=== PATIENT | female | born 1985 | race Caucasian/White ===

== ENCOUNTER 2021-12-24 05:06 | Inpatient (IN) ==
[2021-12-24] MEDS ORDERED: SODIUM CHLORIDE 0.9% 1000ML 1,000 ML IV ONE (05:22)
[2021-12-24] MEDS ORDERED: ALBUT/IPRATROP 3MG/0.5MG NEB 3 ML VIAL NEB STA (05:22)
[2021-12-24] MEDS ORDERED: LORazepam 2 MG/1 ML VIAL IV STA (05:22)
--- NOTE | 2021-12-24 05:30 | Emergency Department Note ---
History of Present Illness General Chief complaint: Shortness of Breath/Dyspnea Stated complaint: HEART IS RACING, SHORTNESS OF BREATH Time Seen by Provider: 12/24/21 05:15 History of Present Illness Maximum Pain Intensity: 7 This 36-year-old presents to the ER complaining of chest pain, tachycardia, dyspnea, fever, body aches, fatigue and rash for the past several days has been to 2 other providers already Location: Generalized Quality: Fatigue Severity: Moderate Duration: Past week Timing: Started a week ago Context: Patient was concerned and came in Modifying factors: better with rest; worse with activity Patient has had a monotest and viral panel which were negative. She is a pending Lyme's test. Patient denies chest pain, dyspnea, abdominal pain, vomiting, diarrhea. No recent tick bite. Home Medications Medication Instructions Recorded Confirmed Type doxycycline monohydrate 100 mg 100 mg PO BID 12/24/21 12/24/21 History tablet escitalopram oxalate 5 mg tablet 5 mg DAILY 12/24/21 12/24/21 History (Lexapro) levothyroxine 125 mcg tablet 125 mcg PO DAILY 12/24/21 12/24/21 History Allergies Allergy/AdvReac Type Severity Reaction Status Date / Time No Known Allergies Allergy Unverified 12/11/15 07:52 Past Med/Surg History Medical History (Updated 12/24/21 @ 22:07 by Clarice Resendez PA-C) Anxiety Carpal tunnel syndrome, left Hypothyroidism Surgical History H/O tubal ligation History of back surgery Family History (Updated 12/24/21 @ 10:24 by Breanna Silva PA-C) Other Diabetes Social History Smoking Status: Never smoker Hx Alcohol Use: No Hx Substance Use: No Preferred Language: Syrian Communication Ability: Effective Chain Puller Required: No Beliefs That Will Affect Care: None Current Living Situation: Spouse Current Living Situation Comment: home with spouse and children Other Information That Helps Us Care for You: No Feels Safe at Home: Yes Safety Concerns: Feels Safe At This Time Assistive Devices: Glasses Review of Systems A total of 10 systems reviewed and were otherwise negative Physical Exam Vital Signs Vital Signs - 24 hr 12/24/21 05:11 12/24/21 05:15 12/24/21 05:28 Temperature 37.0 C Temperature Source Temporal Artery Scan Pulse Rate 126 H 115 H Pulse Rate from SpO2 Sensor Respiratory Rate 18 21 Respiratory Effort / Characteristics Non-Labored Spontaneous Non-Labored Respiratory Depth Normal Normal Respiratory Pattern Regular Regular Blood Pressure 113/67 106/68 Blood Pressure Mean 82 80 Blood Pressure Position Sitting Pulse Oximetry 96 96 Oxygen Delivery Method Room Air Room Air Room Air Sepsis Recent Fever Within 48 Hours Yes Sepsis New/Unexplained Change in Mental Status N/A Sepsis Action Taken by Nursing No Action Required 12/24/21 06:05 12/24/21 07:00 12/24/21 08:00 Temperature Temperature Source Pulse Rate 109 H 105 H 108 H Pulse Rate from SpO2 Sensor 106 H Respiratory Rate 27 H 22 26 H Respiratory Effort / Characteristics Respiratory Depth Respiratory Pattern Blood Pressure 103/70 110/69 110/68 Blood Pressure Mean 81 82 82 Blood Pressure Position Pulse Oximetry 95 99 97 Oxygen Delivery Method Room Air Room Air Room Air Sepsis Recent Fever Within 48 Hours Sepsis New/Unexplained Change in Mental Status Sepsis Action Taken by Nursing VITALS: Vitals are noted on the nurse's note and reviewed by myself. Vital signs tachycardic. GENERAL: White female speaking full sentences, in no acute distress, nondiaphor etic, well-developed well-nourished. SKIN: Mild blanchable hives, the rest of the skin was without rashes, erythema, edema, or bruising. There is no tenting of the skin. Capillary reflex less than 2 seconds. HEAD: Normocephalic atraumatic. EARS: External auditory canals clear, EYES: Pupils equal round and reactive to light and accommodation. Conjunctivae without injection, sclerae without icterus. Extraocular movements intact. NOSE: Patent, turbinates without inflammation or discharge. MOUTH: Mucous membranes moist. Pharynx without erythema or exudate. Uvula midline. Airway patent. Tongue does not deviate. NECK: Supple without nuchal rigidity. No lymphadenopathy. No thyromegaly. Cervical spine is nontender. No JVD. HEART: Regular rate and rhythm LUNGS: Clear to auscultation bilaterally without wheezes, rales or rhonchi. No retractions or accessory muscle use. ABDOMEN: Positive bowel sounds x 4. Normal tympanic percussion. Soft, nontender, without masses or organomegaly. Colon sign negative. No guarding or rebound tenderness. No CVA tenderness MUSCULOSKELETAL: No muscle atrophy, erythema, or edema noted. NEURO: Patient was alert and oriented to person place and time. Normal sensation to light and sharp touch. No focal neurological deficits. Course Administered Medications Doxycycline Hyclate 100 mg/ (Dextrose) 110 mls @ 50 mls/hr IV Q12H RITO Stop: 01/03/22 13:59 Last Infusion: 12/24/21 17:56 Dose: 0 mls/hr Documented by: [id number] Admin: 12/24/21 15:38 Dose: 50 mls/hr Documented by: [id number] Levalbuterol HCl (Levalbuterol Hcl 1.25 Mg/3 Ml Neb) 1.25 mg NEB Q6R PRN; Protocol PRN Reason: SOB or wheezing Stop: 01/23/22 18:59 Last Admin: 12/24/21 20:40 Dose: 1.25 mg Documented by: [id number] Discontinued Medications Albuterol (Albut/Ipratrop 3mg/0.5mg Neb 3 Ml Vial) 3 ml NEB NOW STA; Protocol Stop: 12/24/21 05:23 Last Admin: 12/24/21 06:15 Dose: 3 ml Documented by: [id number] Dexamethasone Sodium Phosphate (DexamethasonePf 10 Mg/Ml Vial) 10 mg IV NOW ONE Stop: 12/24/21 05:32 Last Admin: 12/24/21 06:10 Dose: 10 mg Documented by: [id number] Diphenhydramine HCl (Diphenhydramine 50 Mg/Ml Vial) 25 mg IV NOW STA Stop: 12/24/21 05:32 Last Admin: 12/24/21 06:10 Dose: 25 mg Documented by: [id number] Sodium Chloride (Nss 1000ml) 1,000 mls @ 999 mls/hr IV .Q1H1M ONE Stop: 12/24/21 06:22 Last Infusion: 12/24/21 07:24 Dose: 0 mls/hr Documented by: [id number] Admin: 12/24/21 06:10 Dose: 999 mls/hr Documented by: [id number] Ceftriaxone Sodium (Rocephin) 2,000 mg in 70 mls @ 140 mls/hr IV NOW STA Stop: 12/24/21 10:55 Last Infusion: 12/24/21 11:41 Dose: 0 mls/hr Documented by: [id number] Admin: 12/24/21 11:10 Dose: 140 mls/hr Documented by: [id number] Sodium Chloride (Nss 1000ml) 1,000 mls @ 125 mls/hr IV .Q8H RITO Stop: 12/24/21 19:29 Last Infusion: 12/24/21 19:47 Dose: 0 mls/hr Documented by: [id number] Admin: 12/24/21 11:45 Dose: 125 mls/hr Documented by: [id number] Ioversol (Optiray 320 125ml) 89 ml IV ONCE ONE Stop: 12/24/21 06:40 Last Admin: 12/24/21 06:39 Dose: 89 ml Documented by: [id number] Lorazepam (Lorazepam 2 Mg/1 Ml Vial) 1 mg IV NOW STA; Protocol Stop: 12/24/21 05:23 Last Admin: 12/24/21 06:19 Dose: Not Given Documented by: [id number] Medical Decision Making Medical Records Attestation: I reviewed the patient's medical records. Home Medications Current Medication List: was personally reviewed by me Laboratory Data Attestation: I reviewed the patient's lab results. Result diagrams: 12/24/21 05:49 12/24/21 08:23 Lab Results 12/24/21 12/24/21 12/24/21 Range/Units 05:48 05:49 05:49 WBC 10.39 (4.8-10.8) K/ul RBC 3.60 L (3.93-5.22) M/uL Hgb 10.2 L (12.0-16.0) g/dl POC Hgb (12.0-16.0) g/dl Hct 30.1 L (34.1-44.9) % POC Hct (37-47) % MCV 83.6 (80.0-100.0) fL MCH 28.3 (25.0-34.0) pg MCHC 33.9 (32.0-36.0) g/dL RDW Std Deviation 39.8 (36.4-46.3) fL RDW Coeff of Annabel 13.1 (11.5-14.5) % Plt Count 255 (130-400) K/uL MPV 10.2 (9.4-12.3) fL Immature Gran % (Auto) 0.4 % Neut % (Auto) 88.2 % Lymph % (Auto) 6.1 % [place] % (Auto) 4.4 % Eos % (Auto) 0.7 % Baso % (Auto) 0.2 % Neut # (Auto) 9.17 H (1.4-6.5) K/uL Lymph # (Auto) 0.63 L (1.2-3.4) K/uL [place] # (Auto) 0.46 (0.24-0.82) K/uL Eos # (Auto) 0.07 (0-0.50) K/uL Baso # (Auto) 0.02 (0-0.2) K/uL Immature Gran # (Auto) 0.04 H (0.00-0.02) K/uL Peripher Smr Path Cons ESR (0-20) mm/hr POC Sodium (135-144) mmol/L Sodium 137 (136-145) mmol/L POC Potassium (3.3-5.0) mmol/L Potassium TNP POC Chloride (101-112) mmol/L Chloride 105 (98-107) mmol/L Carbon Dioxide 22 (21-32) mmol/L POC Total CO2 (24-31) mmol/L Anion Gap 10 (3-11) POC Anion Gap (16-25) mmol/L POC BUN (7-18) mg/dl BUN 9 (6-23) mg/dl Creatinine 0.59 L (0.6-1.2) mg/dl POC Creatinine (0.6-1.3) mg/dl Est Cr Clr Drug Dosing 146.5 ml/min Est GFR ( Amer) 136.7 ml/min Est GFR (Non-Af Amer) 117.9 ml/min BUN/Creatinine Ratio 15.3 (10-20) Glucose 106 H (70-99(Fasting)) mg/dl POC Glucose (other) (70-99) mg/dl Lactate (0.4-2.0) mmol/L Calcium 8.2 L (8.5-10.1) mg/dl POC Ioniz Calcium [place] (1.12-1.32) mmol/l Magnesium 1.8 (1.7-2.4) mg/dl Total Bilirubin 1.1 H (0.2-1.0) mg/dl AST TNP ALT 84 H (7-52) U/L Alkaline Phosphatase 108 H (34-104) U/L Troponin I High Sens 24.5 H (0-14) pg/ml C-Reactive Protein (0-0.5) mg/dl Total Protein 6.5 (6.0-8.3) gm/dl Albumin 3.7 (3.4-5.0) gm/dl Globulin 2.8 (2.5-4.0) gm/dl Albumin/Globulin Ratio 1.3 (0.9-2) Lipase (11-82) U/L HCG, Qual (Negative) Urine Color Urine Appearance (Clear) Urine pH (4.5-7.5) Ur Specific [place] (1.000-1.030) Urine Protein (Negative) Urine Glucose (UA) (Negative) Urine Ketones (Negative) Urine Blood (Negative) Urine Nitrite (Negative) Urine Bilirubin (Negative) Urine Urobilinogen (Negative) Ur Leukocyte Esterase (Negative) Adenovirus (PCR) (NotDetected) Anaplasma Smear Cancelled NS Babesia Smear Cancelled See Comment B. pertussis DNA (PCR) (NotDetected) B.parapertussis DNA PCR (NotDetected) Lyme Disease IgG Ab (Negative) Lyme Disease IgM Ab (Negative) C. pneumoniae DNA (PCR) (NotDetected) Coronavirus OC43 (PCR) (NotDetected) Coronavirus HKU1 (PCR) (NotDetected) Coronavirus 229E (PCR) (NotDetected) SARS-CoV-2 (PCR) (NotDetected) Coronavirus NL63 (PCR) (NotDetected) Human Metapneumovir PCR (NotDetected) Influenza Type A (PCR) (NotDetected) Influenza Type B (PCR) (NotDetected) M. pneumoniae (PCR) (NotDetected) Parainfluenza 1 (PCR) (NotDetected) Parainfluenza 2 (PCR) (NotDetected) Parainfluenza 3 (PCR) (NotDetected) Parainfluenza 4 (PCR) (NotDetected) RSV (PCR) (NotDetected) Entero/Rhino (PCR) (NotDetected) 12/24/21 12/24/21 12/24/21 Range/Units 05:49 05:49 05:49 WBC (4.8-10.8) K/ul RBC (3.93-5.22) M/uL Hgb (12.0-16.0) g/dl POC Hgb (12.0-16.0) g/dl Hct (34.1-44.9) % POC Hct (37-47) % MCV (80.0-100.0) fL MCH (25.0-34.0) pg MCHC (32.0-36.0) g/dL RDW Std Deviation (36.4-46.3) fL RDW Coeff of Annabel (11.5-14.5) % Plt Count (130-400) K/uL MPV (9.4-12.3) fL Immature Gran % (Auto) % Neut % (Auto) % Lymph % (Auto) % [place] % (Auto) % Eos % (Auto) % Baso % (Auto) % Neut # (Auto) (1.4-6.5) K/uL Lymph # (Auto) (1.2-3.4) K/uL [place] # (Auto) (0.24-0.82) K/uL Eos # (Auto) (0-0.50) K/uL Baso # (Auto) (0-0.2) K/uL Immature Gran # (Auto) (0.00-0.02) K/uL Peripher Smr Path Cons ESR 20 (0-20) mm/hr POC Sodium (135-144) mmol/L Sodium (136-145) mmol/L POC Potassium (3.3-5.0) mmol/L Potassium POC Chloride (101-112) mmol/L Chloride (98-107) mmol/L Carbon Dioxide (21-32) mmol/L POC Total CO2 (24-31) mmol/L Anion Gap (3-11) POC Anion Gap (16-25) mmol/L POC BUN (7-18) mg/dl BUN (6-23) mg/dl Creatinine (0.6-1.2) mg/dl POC Creatinine (0.6-1.3) mg/dl Est Cr Clr Drug Dosing ml/min Est GFR ( Amer) ml/min Est GFR (Non-Af Amer) ml/min BUN/Creatinine Ratio (10-20) Glucose (70-99(Fasting)) mg/dl POC Glucose (other) (70-99) mg/dl Lactate (0.4-2.0) mmol/L Calcium (8.5-10.1) mg/dl POC Ioniz Calcium [place] (1.12-1.32) mmol/l Magnesium (1.7-2.4) mg/dl Total Bilirubin (0.2-1.0) mg/dl AST ALT (7-52) U/L Alkaline Phosphatase (34-104) U/L Troponin I High Sens (0-14) pg/ml C-Reactive Protein (0-0.5) mg/dl Total Protein (6.0-8.3) gm/dl Albumin (3.4-5.0) gm/dl Globulin (2.5-4.0) gm/dl Albumin/Globulin Ratio (0.9-2) Lipase (11-82) U/L HCG, Qual Negative (Negative) Urine Color Urine Appearance (Clear) Urine pH (4.5-7.5) Ur Specific [place] (1.000-1.030) Urine Protein (Negative) Urine Glucose (UA) (Negative) Urine Ketones (Negative) Urine Blood (Negative) Urine Nitrite (Negative) Urine Bilirubin (Negative) Urine Urobilinogen (Negative) Ur Leukocyte Esterase (Negative) Adenovirus (PCR) (NotDetected) Anaplasma Smear Babesia Smear B. pertussis DNA (PCR) (NotDetected) B.parapertussis DNA PCR (NotDetected) Lyme Disease IgG Ab Positive A (Negative) Lyme Disease IgM Ab Positive A (Negative) C. pneumoniae DNA (PCR) (NotDetected) Coronavirus OC43 (PCR) (NotDetected) Coronavirus HKU1 (PCR) (NotDetected) Coronavirus 229E (PCR) (NotDetected) SARS-CoV-2 (PCR) (NotDetected) Coronavirus NL63 (PCR) (NotDetected) Human Metapneumovir PCR (NotDetected) Influenza Type A (PCR) (NotDetected) Influenza Type B (PCR) (NotDetected) M. pneumoniae (PCR) (NotDetected) Parainfluenza 1 (PCR) (NotDetected) Parainfluenza 2 (PCR) (NotDetected) Parainfluenza 3 (PCR) (NotDetected) Parainfluenza 4 (PCR) (NotDetected) RSV (PCR) (NotDetected) Entero/Rhino (PCR) (NotDetected) 12/24/21 12/24/21 12/24/21 Range/Units 05:49 06:00 06:03 WBC (4.8-10.8) K/ul RBC (3.93-5.22) M/uL Hgb (12.0-16.0) g/dl POC Hgb 9.9 L (12.0-16.0) g/dl Hct (34.1-44.9) % POC Hct 29 L (37-47) % MCV (80.0-100.0) fL MCH (25.0-34.0) pg MCHC (32.0-36.0) g/dL RDW Std Deviation (36.4-46.3) fL RDW Coeff of Annabel (11.5-14.5) % Plt Count (130-400) K/uL MPV (9.4-12.3) fL Immature Gran % (Auto) % Neut % (Auto) % Lymph % (Auto) % [place] % (Auto) % Eos % (Auto) % Baso % (Auto) % Neut # (Auto) (1.4-6.5) K/uL Lymph # (Auto) (1.2-3.4) K/uL [place] # (Auto) (0.24-0.82) K/uL Eos # (Auto) (0-0.50) K/uL Baso # (Auto) (0-0.2) K/uL Immature Gran # (Auto) (0.00-0.02) K/uL Peripher Smr Path Cons Cancelled ESR (0-20) mm/hr POC Sodium 138 (135-144) mmol/L Sodium (136-145) mmol/L POC Potassium 3.6 (3.3-5.0) mmol/L Potassium POC Chloride 102 (101-112) mmol/L Chloride (98-107) mmol/L Carbon Dioxide (21-32) mmol/L POC Total CO2 25 (24-31) mmol/L Anion Gap (3-11) POC Anion Gap 17.0 (16-25) mmol/L POC BUN 8 (7-18) mg/dl BUN (6-23) mg/dl Creatinine (0.6-1.2) mg/dl POC Creatinine 0.6 (0.6-1.3) mg/dl Est Cr Clr Drug Dosing ml/min Est GFR ( Amer) ml/min Est GFR (Non-Af Amer) ml/min BUN/Creatinine Ratio (10-20) Glucose (70-99(Fasting)) mg/dl POC Glucose (other) 109 H (70-99) mg/dl Lactate (0.4-2.0) mmol/L Calcium (8.5-10.1) mg/dl POC Ioniz Calcium [place] 1.15 (1.12-1.32) mmol/l Magnesium (1.7-2.4) mg/dl Total Bilirubin (0.2-1.0) mg/dl AST ALT (7-52) U/L Alkaline Phosphatase (34-104) U/L Troponin I High Sens (0-14) pg/ml C-Reactive Protein (0-0.5) mg/dl Total Protein (6.0-8.3) gm/dl Albumin (3.4-5.0) gm/dl Globulin (2.5-4.0) gm/dl Albumin/Globulin Ratio (0.9-2) Lipase (11-82) U/L HCG, Qual (Negative) Urine Color Urine Appearance (Clear) Urine pH (4.5-7.5) Ur Specific [place] (1.000-1.030) Urine Protein (Negative) Urine Glucose (UA) (Negative) Urine Ketones (Negative) Urine Blood (Negative) Urine Nitrite (Negative) Urine Bilirubin (Negative) Urine Urobilinogen (Negative) Ur Leukocyte Esterase (Negative) Adenovirus (PCR) Not Detected (NotDetected) Anaplasma Smear Babesia Smear B. pertussis DNA (PCR) Not Detected (NotDetected) B.parapertussis DNA PCR Not Detected (NotDetected) Lyme Disease IgG Ab (Negative) Lyme Disease IgM Ab (Negative) C. pneumoniae DNA (PCR) Not Detected (NotDetected) Coronavirus OC43 (PCR) Not Detected (NotDetected) Coronavirus HKU1 (PCR) Not Detected (NotDetected) Coronavirus 229E (PCR) Not Detected (NotDetected) SARS-CoV-2 (PCR) Not Detected (NotDetected) Coronavirus NL63 (PCR) Not Detected (NotDetected) Human Metapneumovir PCR Not Detected (NotDetected) Influenza Type A (PCR) Not Detected (NotDetected) Influenza Type B (PCR) Not Detected (NotDetected) M. pneumoniae (PCR) Not Detected (NotDetected) Parainfluenza 1 (PCR) Not Detected (NotDetected) Parainfluenza 2 (PCR) Not Detected (NotDetected) Parainfluenza 3 (PCR) Not Detected (NotDetected) Parainfluenza 4 (PCR) Not Detected (NotDetected) RSV (PCR) Not Detected (NotDetected) Entero/Rhino (PCR) Not Detected (NotDetected) 12/24/21 12/24/21 12/24/21 Range/Units 07:55 08:23 08:23 WBC (4.8-10.8) K/ul RBC (3.93-5.22) M/uL Hgb (12.0-16.0) g/dl POC Hgb (12.0-16.0) g/dl Hct (34.1-44.9) % POC Hct (37-47) % MCV (80.0-100.0) fL MCH (25.0-34.0) pg MCHC (32.0-36.0) g/dL RDW Std Deviation (36.4-46.3) fL RDW Coeff of Annabel (11.5-14.5) % Plt Count (130-400) K/uL MPV (9.4-12.3) fL Immature Gran % (Auto) % Neut % (Auto) % Lymph % (Auto) % [place] % (Auto) % Eos % (Auto) % Baso % (Auto) % Neut # (Auto) (1.4-6.5) K/uL Lymph # (Auto) (1.2-3.4) K/uL [place] # (Auto) (0.24-0.82) K/uL Eos # (Auto) (0-0.50) K/uL Baso # (Auto) (0-0.2) K/uL Immature Gran # (Auto) (0.00-0.02) K/uL Peripher Smr Path Cons ESR (0-20) mm/hr POC Sodium (135-144) mmol/L Sodium (136-145) mmol/L POC Potassium (3.3-5.0) mmol/L Potassium 3.8 POC Chloride (101-112) mmol/L Chloride (98-107) mmol/L Carbon Dioxide (21-32) mmol/L POC Total CO2 (24-31) mmol/L Anion Gap (3-11) POC Anion Gap (16-25) mmol/L POC BUN (7-18) mg/dl BUN (6-23) mg/dl Creatinine (0.6-1.2) mg/dl POC Creatinine (0.6-1.3) mg/dl Est Cr Clr Drug Dosing ml/min Est GFR ( Amer) ml/min Est GFR (Non-Af Amer) ml/min BUN/Creatinine Ratio (10-20) Glucose (70-99(Fasting)) mg/dl POC Glucose (other) (70-99) mg/dl Lactate (0.4-2.0) mmol/L Calcium (8.5-10.1) mg/dl POC Ioniz Calcium [place] (1.12-1.32) mmol/l Magnesium (1.7-2.4) mg/dl Total Bilirubin (0.2-1.0) mg/dl AST 28 ALT (7-52) U/L Alkaline Phosphatase (34-104) U/L Troponin I High Sens Cancelled (0-14) pg/ml C-Reactive Protein 10.71 H (0-0.5) mg/dl Total Protein (6.0-8.3) gm/dl Albumin (3.4-5.0) gm/dl Globulin (2.5-4.0) gm/dl Albumin/Globulin Ratio (0.9-2) Lipase (11-82) U/L HCG, Qual (Negative) Urine Color Yellow Urine Appearance Clear (Clear) Urine pH 6.5 (4.5-7.5) Ur Specific [place] > 1.045 H (1.000-1.030) Urine Protein Negative (Negative) Urine Glucose (UA) Negative (Negative) Urine Ketones 1+ H (Negative) Urine Blood Negative (Negative) Urine Nitrite Negative (Negative) Urine Bilirubin Negative (Negative) Urine Urobilinogen Negative (Negative) Ur Leukocyte Esterase Negative (Negative) Adenovirus (PCR) (NotDetected) Anaplasma Smear Babesia Smear B. pertussis DNA (PCR) (NotDetected) B.parapertussis DNA PCR (NotDetected) Lyme Disease IgG Ab (Negative) Lyme Disease IgM Ab (Negative) C. pneumoniae DNA (PCR) (NotDetected) Coronavirus OC43 (PCR) (NotDetected) Coronavirus HKU1 (PCR) (NotDetected) Coronavirus 229E (PCR) (NotDetected) SARS-CoV-2 (PCR) (NotDetected) Coronavirus NL63 (PCR) (NotDetected) Human Metapneumovir PCR (NotDetected) Influenza Type A (PCR) (NotDetected) Influenza Type B (PCR) (NotDetected) M. pneumoniae (PCR) (NotDetected) Parainfluenza 1 (PCR) (NotDetected) Parainfluenza 2 (PCR) (NotDetected) Parainfluenza 3 (PCR) (NotDetected) Parainfluenza 4 (PCR) (NotDetected) RSV (PCR) (NotDetected) Entero/Rhino (PCR) (NotDetected) 12/24/21 12/24/21 12/24/21 Range/Units 08:23 08:23 08:23 WBC (4.8-10.8) K/ul RBC (3.93-5.22) M/uL Hgb (12.0-16.0) g/dl POC Hgb (12.0-16.0) g/dl Hct (34.1-44.9) % POC Hct (37-47) % MCV (80.0-100.0) fL MCH (25.0-34.0) pg MCHC (32.0-36.0) g/dL RDW Std Deviation (36.4-46.3) fL RDW Coeff of Annabel (11.5-14.5) % Plt Count (130-400) K/uL MPV (9.4-12.3) fL Immature Gran % (Auto) % Neut % (Auto) % Lymph % (Auto) % [place] % (Auto) % Eos % (Auto) % Baso % (Auto) % Neut # (Auto) (1.4-6.5) K/uL Lymph # (Auto) (1.2-3.4) K/uL [place] # (Auto) (0.24-0.82) K/uL Eos # (Auto) (0-0.50) K/uL Baso # (Auto) (0-0.2) K/uL Immature Gran # (Auto) (0.00-0.02) K/uL Peripher Smr Path Cons ESR (0-20) mm/hr POC Sodium (135-144) mmol/L Sodium (136-145) mmol/L POC Potassium (3.3-5.0) mmol/L Potassium POC Chloride (101-112) mmol/L Chloride (98-107) mmol/L Carbon Dioxide (21-32) mmol/L POC Total CO2 (24-31) mmol/L Anion Gap (3-11) POC Anion Gap (16-25) mmol/L POC BUN (7-18) mg/dl BUN (6-23) mg/dl Creatinine (0.6-1.2) mg/dl POC Creatinine (0.6-1.3) mg/dl Est Cr Clr Drug Dosing ml/min Est GFR ( Amer) ml/min Est GFR (Non-Af Amer) ml/min BUN/Creatinine Ratio (10-20) Glucose (70-99(Fasting)) mg/dl POC Glucose (other) (70-99) mg/dl Lactate 1.0 (0.4-2.0) mmol/L Calcium (8.5-10.1) mg/dl POC Ioniz Calcium [place] (1.12-1.32) mmol/l Magnesium (1.7-2.4) mg/dl Total Bilirubin (0.2-1.0) mg/dl AST ALT (7-52) U/L Alkaline Phosphatase (34-104) U/L Troponin I High Sens 23.9 H (0-14) pg/ml C-Reactive Protein (0-0.5) mg/dl Total Protein (6.0-8.3) gm/dl Albumin (3.4-5.0) gm/dl Globulin (2.5-4.0) gm/dl Albumin/Globulin Ratio (0.9-2) Lipase 3 L (11-82) U/L HCG, Qual (Negative) Urine Color Urine Appearance (Clear) Urine pH (4.5-7.5) Ur Specific [place] (1.000-1.030) Urine Protein (Negative) Urine Glucose (UA) (Negative) Urine Ketones (Negative) Urine Blood (Negative) Urine Nitrite (Negative) Urine Bilirubin (Negative) Urine Urobilinogen (Negative) Ur Leukocyte Esterase (Negative) Adenovirus (PCR) (NotDetected) Anaplasma Smear Babesia Smear B. pertussis DNA (PCR) (NotDetected) B.parapertussis DNA PCR (NotDetected) Lyme Disease IgG Ab (Negative) Lyme Disease IgM Ab (Negative) C. pneumoniae DNA (PCR) (NotDetected) Coronavirus OC43 (PCR) (NotDetected) Coronavirus HKU1 (PCR) (NotDetected) Coronavirus 229E (PCR) (NotDetected) SARS-CoV-2 (PCR) (NotDetected) Coronavirus NL63 (PCR) (NotDetected) Human Metapneumovir PCR (NotDetected) Influenza Type A (PCR) (NotDetected) Influenza Type B (PCR) (NotDetected) M. pneumoniae (PCR) (NotDetected) Parainfluenza 1 (PCR) (NotDetected) Parainfluenza 2 (PCR) (NotDetected) Parainfluenza 3 (PCR) (NotDetected) Parainfluenza 4 (PCR) (NotDetected) RSV (PCR) (NotDetected) Entero/Rhino (PCR) (NotDetected) Imaging Data Attestation: I personally reviewed and interpreted this imaging study as follows: Radiologist's Impression: Chest X-Ray 12/24/21 05:15 XR chest 1V portable HISTORY: 36 years-old Female Dyspnea acute shortness of breath COMPARISON: CTA chest of same day TECHNIQUE: Portable AP view of the chest FINDINGS: The cardiomediastinal and hilar silhouettes are within normal limits. There is no pneumothorax, pleural effusion, airspace consolidation or overt pulmonary edema. Minimal subsegmental bibasilar atelectasis. Right shoulder rotator cuff calcific tendinosis. Bones appear grossly intact. IMPRESSION: No acute process. ACT 112: Negative or not required by law. The above report was generated using voice recognition software. It may contain grammatical, syntax or spelling errors. Electronically signed by: Jignesh Davis M.D. 12/24/2021 6:40 AM MDM Narrative Prior records/ancillary studies reviewed and summarized above. Nursing notes reviewed. Additional history obtained from nursing. The patient's history was concerning for fever, chills, tachycardia, dyspnea, rash and fatigue Differential diagnosis: Etiologies such as metabolic, infection, hypo/hyperglycemia, electrolyte abnormalities, cardiac sources, intracerebral event, toxicologic, neurologic, as well as others were entertained. Physical examination: As above. ER treatment provided: IV Lock An order was placed for continuous cardiac monitoring. The monitor shows a rate of 60-1 50 with a sinus rhythm. IV fluids, DuoNeb, Decadron, Benadryl On reassessment the patient felt better. Diagnostics interpretation by me: #1 ECG: Ordered for chest pain EKG: Poor baseline, normal sinus, T wave inversions in 1 and aVL, rate of 113. Impression sinus tachycardia with T wave inversions in 1 and aVL interpreted by myself I think arrhythmia is unlikely. EKG shows normal sinus rhythm with no interval abnormalities such as QT prolongation or WPW. There are no findings to suggest Brugada syndrome. Cardiac monitoring in the emergency department reveals no tachycardic or bradycardic dysrhythmia. Hypertrophic cardiomyopathy was considered but there are no clear historical elements pointing toward this. EKG is not suggestive. The QRS voltage is not extremely large and there are no suggestive Q waves. #2 EKG ordered for positive troponin EKG: Normal sinus, T wave inversions 1 aVL, rate of 107. Impression sinus tachycardia with persistent T wave inversions in 1 aVL interpreted by myself I think arrhythmia is unlikely. EKG shows normal sinus rhythm with no interval abnormalities such as QT prolongation or WPW. There are no findings to suggest Brugada syndrome. Cardiac monitoring in the emergency department reveals no tachycardic or bradycardic dysrhythmia. Hypertrophic cardiomyopathy was considered but there are no clear historical elements pointing toward this. EKG is not suggestive. The QRS voltage is not extremely large and there are no suggestive Q waves. The labs revealed slightly elevated troponin. Pending tickborne panel at time of admission Imaging studies: Chest x-ray with no acute consolidation, pneumothorax or free air per my interpretation as above Consultation: A consultation was placed with the hospitalist. The case was discussed and diagnostics were reviewed. The patient was evaluated in the ER for further treatment. Exam and history seem consistent with chest pain, dyspnea, tachycardia cold symptoms with an elevated troponin. Labs and imaging are pending at time of signout. Patient will be admitted. By the evaluation outlined above emergent etiologies such as electrolyte abnormalities, intracerebral event, toxologic, neurologic, abnormalities blood glucose, metabolic, as well as others were deemed relatively unlikely. The pt informed about the findings as listed above. All questions were answered and pleased with the treatment. . Case signed out to oncoming provider pending labs and imaging in stable condition. The chart was completed utilizing [employer] Speech voice recognition software. Grammatical errors, random word insertions, pronoun errors, and incomplete sentences are an occassional consequence of this system due to software limitations, ambient noise, and hardware issues. Any formal questions or co ncerns about the content, text, or information contained within the body of this dictation should be directly addressed to the physician retail assistant for clarification. Impression & Plan Elevated troponin, Acute dyspnea, Tachycardia, Chest pain, Acute Lyme disease Discharge Plan Visit Data Chief Complaint: Shortness of Breath/Dyspnea Stated Complaint: HEART IS RACING, SHORTNESS OF BREATH ED Provider: Guillermo Guerra ED Midlevel Provider: Clarice Resendez Discharge Problem: Elevated troponin, Acute dyspnea, Tachycardia, Chest pain, Acute Lyme disease Patient Disposition: Admitted As Inpatient Condition: Good Discharge Instructions Interventions: ED Discharge Assessment Last Done: 12/24/21 13:30
[2021-12-24] MEDS ORDERED: diphenhydrAMINE 50 MG/ML VIAL IV STA (05:31)
[2021-12-24] MEDS ORDERED: dexAMETHasone**PF** 10 MG/ML VIAL IV ONE (05:31)
[2021-12-24 06:14] LABS: Basophils # (auto) 0.02 K/uL (0-0.2); Basophils % (auto) 0.2 %; Eosinophils # (auto) 0.07 K/uL (0-0.50); Eosinophils % (auto) 0.7 %; Hematocrit (blood only) 30.1 % (34.1-44.9); Hemoglobin 10.2 g/dl (12.0-16.0); Immature Granulocytes # (auto) 0.04 K/uL (0.00-0.02); Immature Granulocytes % (auto) 0.4 %; Lymphocytes # (auto) 0.63 K/uL (1.2-3.4); Lymphocytes % (auto) 6.1 %; Mean Corpuscular Hemoglobin 28.3 pg (25.0-34.0); Mean Corpuscular Hgb Conc 33.9 g/dL (32.0-36.0); Mean Corpuscular Volume 83.6 fL (80.0-100.0); Mean Platelet Volume 10.2 fL (9.4-12.3); Monocytes # (auto) 0.46 K/uL (0.24-0.82); Monocytes % (auto) 4.4 %; Neutrophils # (auto) 9.17 K/uL (1.4-6.5); Neutrophils % (auto) 88.2 %; Platelet Count 255 K/uL (130-400); RDW Coefficient of Variation 13.1 % (11.5-14.5); RDW Standard Deviation 39.8 fL (36.4-46.3); White Blood Count 10.39 K/ul (4.8-10.8)
[2021-12-24 06:18] LABS: iSTAT Creatinine 0.6 mg/dl (0.6-1.3); iSTAT Hemoglobin 9.9 g/dl (12.0-16.0); iSTAT Ionized Calcium 1.15 mmol/l (1.12-1.32); iSTAT Potassium 3.6 mmol/L (3.3-5.0)
[2021-12-24 06:29] LABS: Alanine Aminotransferase 84 U/L (7-52); Albumin Globulin Ratio 1.3 (0.9-2); Albumin Level 3.7 gm/dl (3.4-5.0); Alkaline Phosphatase 108 U/L (34-104); Anion Gap 10 (3-11); BUN Creatinine Ratio 15.3 (10-20); Bilirubin,Total 1.1 mg/dl (0.2-1.0); Blood Urea Nitrogen 9 mg/dl (6-23); Calcium 8.2 mg/dl (8.5-10.1); Carbon Dioxide 22 mmol/L (21-32); Chloride 105 mmol/L (98-107); Creatinine Clr Calc Pharmacy 146.5 ml/min; Est GFR (African American) 136.7 ml/min; Est GFR (Non-African American) 117.9 ml/min; Globulin 2.8 gm/dl (2.5-4.0); Glucose 106 mg/dl (70-99(Fasting)); Magnesium 1.8 mg/dl (1.7-2.4); Sodium 137 mmol/L (136-145); Total Protein 6.5 gm/dl (6.0-8.3); Troponin I High Sensitivity 24.5 pg/ml (0-14)
[2021-12-24] MEDS ORDERED: OPTIRAY 320 125ml IV ONE (06:39)
--- NOTE | 2021-12-24 06:42 | XRay Report ---
XR chest 1V portable HISTORY: 36 years-old Female Dyspnea acute shortness of breath COMPARISON: CTA chest of same day TECHNIQUE: Portable AP view of the chest FINDINGS: The cardiomediastinal and hilar silhouettes are within normal limits. There is no pneumothorax, pleur al effusion, airspace consolidation or overt pulmonary edema. Minimal subsegmental bibasilar atelecta sis. Right shoulder rotator cuff calcific tendinosis. Bones appear grossly intact. IMPRESSION: No acute process. ACT 112: Negative or not required by law. The above report was generated using voice recognition software. It may contain grammatical, syntax o r spelling errors. Electronically signed by: Jignesh Davis M.D. 12/24/2021 6:40 AM
[2021-12-24 06:58] LABS: Pregnancy Test, Serum Negative (Negative)
--- NOTE | 2021-12-24 07:02 | CT Scan Report ---
CT angio chest PE protocol CT DOSE: 387.54 mGy.cm HISTORY: 36 years-old Female with Dyspnea. Acute chest pain with shortness of breath TECHNIQUE: Multiple CTA images of the chest were obtained after the intravenous administration of 89 ml Optiray. Coronal and sagittal MIPS were obtained from the axial data set and were submitted for r eview. All measurements were obtained according to NASCET criteria. A dose lowering technique was ut ilized adhering to the principles of ALARA. COMPARISON: Chest radiograph of same day FINDINGS: CTA: There is adequate opacification of the pulmonary arteries to the level of the segmental branches with out convincing evidence of acute pulmonary embolism. Normal thoracic aorta.Heart size is normal. CT CHEST: No dominant thyroid nodule is seen. Nonspecific mildly enlarged right hilar lymph node, 1.2 cm. Ther e is no pneumothorax, pleural effusion or focal airspace consolidation. There is mild dependent subse gmental bibasilar atelectasis. There are no suspicious pulmonary nodules or masses. The central airwa ys are patent. The imaged upper abdominal structures are unremarkable. Probable hepatic steatosis. The spleen measu res within the upper limits of normal in size. Unremarkable soft tissues. No acute fracture. IMPRESSION: Unremarkable CTA of the chest. No pulmonary emboli identified. ACT 112: Negative or not required by law. The above report was generated using voice recognition software. It may contain grammatical, syntax o r spelling errors. Electronically signed by: Jignesh Davis M.D. 12/24/2021 7:01 AM
[2021-12-24 07:13] LABS: Adenovirus PCR Not Detected (NotDetected); Bordetella parapertussis PCR Not Detected (NotDetected); Bordetella pertussis PCR Not Detected (NotDetected); Chlamydia pneumoniae PCR Not Detected (NotDetected); Coronavirus 229E PCR Not Detected (NotDetected); Coronavirus CoV-2 (COVID19)PCR Not Detected (NotDetected); Coronavirus HKU1 PCR Not Detected (NotDetected); Coronavirus NL63 PCR Not Detected (NotDetected); Coronavirus OC43PCR Not Detected (NotDetected); Human Metapneumovirus PCR Not Detected (NotDetected); Influenza A PCR Not Detected (NotDetected); Influenza B PCR Not Detected (NotDetected); Mycoplasma pneumoniae PCR Not Detected (NotDetected); Parainfluenza Virus 1 PCR Not Detected (NotDetected); Parainfluenza Virus 2 PCR Not Detected (NotDetected); Parainfluenza Virus 3 PCR Not Detected (NotDetected); Parainfluenza Virus 4 PCR Not Detected (NotDetected); Respiratory Syncytial VirusPCR Not Detected (NotDetected); Rhinovirus/Enterovirus PCR Not Detected (NotDetected)
[2021-12-24 07:29] LABS: Lyme Ab IgG w/WB Rflx Positive (Negative); Lyme Ab IgM w/WB Rflx Positive (Negative)
[2021-12-24 08:12] LABS: Appearance Urine Clear (Clear); Bilirubin Urine Negative (Negative); Blood Urine Negative (Negative); Color Urine Yellow; Glucose Urine UA Negative (Negative); Ketones Urine 1+ (Negative); Leukocyte Esterase Urine Negative (Negative); Nitrite Urine Negative (Negative); Protein Urine Negative (Negative); Specific Gravity Urine > 1.045 (1.000-1.030); Urobilinogen Urine Negative (Negative); pH Urine 6.5 (4.5-7.5)
[2021-12-24 08:51] LABS: Potassium 3.8 mmol/L (3.5-5.1)
[2021-12-24 08:58] LABS: Anaplasmosis Smear NS
--- NOTE | 2021-12-24 09:46 | History & Physical Report ---
Date of Service December 24, 2021 Assessment & Plan (1) Acute Lyme disease: (2) Elevated troponin: (3) Anxiety: Plan: This is a 36yo F with a PMH of hypothyroidism and anxiety who presents with palpitations, headache and rash x 3 weeks found to have acute lyme disease. Acute lyme disease Elevated troponin Sinus tachycardia Rash, headache, fevers x 3 weeks followed by sinus tach up to 120s, exertional dyspnea over past few days Has been on Po doxy x 3 days - continue empirically for concern for Anaplasmosis. Smear and DNA pending WBC and lactate WNL. Hgb 10, ESR 20, CRP 10.71 Biofire positive for lyme disease IgM and IgG. Babesia smear negative, DNA pending Starting IV Rocephin, continue IV fluids and analgesics PRN EKG with sinus tachycardia HS troponin 24.5 with repeat of 23.9. Denies chest pain. Continue to trend Q6H Transthoracic echo ordered Continue telemetry monitoring, routine cardiology consult No neurological deficits Epigastric pain In setting of acute lyme disease Mild elevation of LFTs - tbili 1.1, ALT 84, alk phos 108 Lipase WNL Abdominal XR ordered Anxiety Continue Lexapro HS Hypothyroidism Continue levothyroxine DVT Ppx: SCDs, early ambulation Code status: FULL PCP: Charli ([place]) Dispo: Admitted to [facility] tele Patient seen in collaboration with Dr. Mohr. Please see addendum. History of Present Illness Chief Complaint: Headache, fever, rash Primary Care Provider: Charito Augustin MD This is a 36yo F with a PMH of hypothyroidism and anxiety who presents with palpitations, headache and rash x 3 weeks. Patient began to feel much more fatigued than usual 3 weeks ago when she noted a rash on left lower extremity. Then developed intermittent headache and fever (tmax 101) over next few weeks. Was in [place] ER over the weekend and followed up with PCP on Tuesday and started on doxycycline for rash. Outpatient lab work revealed mild anemia and elevated liver enzymes as well negative Mononucleosis test. 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 Also noted new rash behind left armpit. Feeling dyspneic with exertion. Continues to have intermittent fevers, most recently 101 yesterday with chills. Taking tylenol and advil at home with symptomatic improvement. Also endorsing epigastric pain over past few days as well as decreased appetite. No nasal congestion, sore throat, chest pain, wheezing, nausea, vomiting, diarrhea or constipation. Denies any known tick bites. No paresthesias or weakness of extremities. No difficulty with memory. Allergies Allergy/AdvReac Type Severity Reaction Status Date / Time No Known Allergies Allergy Unverified 12/11/15 07:52 Home Medications Medication Instructions Recorded Confirmed Type doxycycline monohydrate 100 mg 100 mg PO BID 12/24/21 12/24/21 History tablet escitalopram oxalate 5 mg tablet 5 mg DAILY 12/24/21 12/24/21 History (Lexapro) levothyroxine 125 mcg tablet 125 mcg PO DAILY 12/24/21 12/24/21 History Past Med/Surg History Medical History (Updated 12/24/21 @ 11:34 by SHELDON Dobbins) Anxiety Carpal tunnel syndrome, left Hypothyroidism Surgical History H/O tubal ligation History of back surgery Family History (Updated 12/24/21 @ 10:24 by Breanna Silva PA-C) Other Diabetes Social History Smoking Status: Never smoker Hx Alcohol Use: No Hx Substance Use: No Preferred Language: Portuguese Feels Safe at Home: Yes Review of Systems Review of Systems: At least ten systems reviewed and negative except as noted in the HPI. Physical Exam Physical Exam: General Appearance: WD/WN, vitals as above, NAD, sitting up in bed, pleasant, conversing easily Head: normocephalic, atraumatic Eyes: normal inspection, PERRL, conjunctivae normal, anicteric sclerae ENT: external ear and nose normal, oropharynx normal Neck: normal visual inspection, trachea midline, no thyromegaly Respiratory: normal respiratory effort, lungs clear to auscultation, no wheeze, rales, rhonchi. No accessory muscle use Cardiovascular: tachycardic rate, regular rhythm, no murmur, normal peripheral pulses, no BLE edema. Vessels: no JVD Chest: normal inspection of chest Abdomen/GI: normal bowel sounds, soft, epigastric TTP, no guarding, no hepatosplenomegaly Extremities/Musculoskeletal: no cyanosis or clubbing, extremities motor strength 5/5 Neurologic: PERRL, EOMI, accommodation nl, no face palsy, no dysarthria, CN's II-XI intact bilaterally and moves all extremities Psychiatric: A+Ox3, euthymic affect Skin: + large erythematous rash on LLE with central clearing. Smaller circumscribed erythematous rash on posterior axillary region of L arm with central clearing. Non-tender, no drainage. Warm/dry Results & Data Results & Data ([facility]) Vital Signs (Past 12 Hours) Vital Signs Temp Pulse Resp BP Pulse Ox 12/24/21 07:00 105 H 22 110/69 99 12/24/21 06:05 109 H 27 H 103/70 95 12/24/21 05:28 115 H 21 106/68 96 12/24/21 05:11 37.0 C 126 H 18 113/67 96 Laboratory Results Short CBC 12/24/21 Range/Units 05:49 WBC 10.39 (4.8-10.8) K/ul Hgb 10.2 L (12.0-16.0) g/dl Hct 30.1 L (34.1-44.9) % Plt Count 255 (130-400) K/uL BMP 12/24/21 12/24/21 05:49 08:23 Sodium 137 Potassium TNP 3.8 Chloride 105 Carbon Dioxide 22 BUN 9 Creatinine 0.59 L Glucose 106 H Calcium 8.2 L Liver Function 12/24/21 12/24/21 Range/Units 05:49 08:23 Total Bilirubin 1.1 H (0.2-1.0) mg/dl AST TNP 28 ALT 84 H (7-52) U/L Alkaline Phosphatase 108 H (34-104) U/L Albumin 3.7 (3.4-5.0) gm/dl Urine 12/24/21 Range/Units 07:55 Urine Color Yellow Urine Appearance Clear (Clear) Urine pH 6.5 (4.5-7.5) Ur Specific Snelling > 1.045 H (1.000-1.030) Urine Protein Negative (Negative) Urine Glucose (UA) Negative (Negative) Diagnostic Findings Chest CTA 12/24/21 05:15 CT angio chest PE protocol CT DOSE: 387.54 mGy.cm HISTORY: 36 years-old Female with Dyspnea. Acute chest pain with shortness of breath TECHNIQUE: Multiple CTA images of the chest were obtained after the intravenous administration of 89 ml Optiray. Coronal and sagittal MIPS were obtained from the axial data set and were submitted for review. All measurements were obtained according to NASCET criteria. A dose lowering technique was utilized adhering to the principles of ALARA. COMPARISON: Chest radiograph of same day FINDINGS: CTA: There is adequate opacification of the pulmonary arteries to the level of the segmental branches without convincing evidence of acute pulmonary embolism. Normal thoracic aorta.Heart size is normal. CT CHEST: No dominant thyroid nodule is seen. Nonspecific mildly enlarged right hilar lymph node, 1.2 cm. There is no pneumothorax, pleural effusion or focal airspace consolidation. There is mild dependent subsegmental bibasilar atelectasis. There are no suspicious pulmonary nodules or masses. The central airways are patent. The imaged upper abdominal structures are unremarkable. Probable hepatic steatosis. The spleen measures within the upper limits of normal in size. Unremarkable soft tissues. No acute fracture. IMPRESSION: Unremarkable CTA of the chest. No pulmonary emboli identified. ACT 112: Negative or not required by law. The above report was generated using voice recognition software. It may contain grammatical, syntax or spelling errors. Electronically signed by: Jignesh Davis M.D. 12/24/2021 7:01 AM Chest X-Ray 12/24/21 05:15 XR chest 1V portable HISTORY: 36 years-old Female Dyspnea acute shortness of breath COMPARISON: CTA chest of same day TECHNIQUE: Portable AP view of the chest FINDINGS: The cardiomediastinal and hilar silhouettes are within normal limits. There is no pneumothorax, pleural effusion, airspace consolidation or overt pulmonary edema. Minimal subsegmental bibasilar atelectasis. Right shoulder rotator cuff calcific tendinosis. Bones appear grossly intact. IMPRESSION: No acute process. ACT 112: Negative or not required by law. The above report was generated using voice recognition software. It may contain grammatical, syntax or spelling errors. Electronically signed by: Jignesh Davis M.D. 12/24/2021 6:40 AM ECG Additional Comments: sinus tachycardia Code Status & VTE Plan VTE Prophylaxis Plan VTE Prophylaxis will be ordered: Yes Supervising Physician Co-Signing Physician Notes 36-year-old lady with PMH of hypothyroidism and anxiety presented to the ED 12/28 with complaint of palpitation and rash. Per patient, she started having symptoms of tiredness and headache almost 14 days ago, since last 6 to 7 days, she started having chest tightness and feeling of heart racing and shortness of breath with exertion that gradually worsened. Per patient, he visited [facility] ER on Tuesday evening, was given Tylenol and ibuprofen which improved her pain. On Tuesday morning, patient followed up with her family doctor who sent tests in the line of tickborne illness per her and the results are yet pending but due to worsening dyspnea on exertion and chest tightness, patient decided to present to the ED today. Patient started her doxycycline from yesterday evening. Patient denies any smoking/alcohol use/use of recreational drugs or marijuana. Likely early disseminated lyme disease. Patient given doxycycline in the ED, due to concerns of cardiac symptoms, will put her on Rocephin and due to concerns of elevated liver enzymes, will continue with doxycycline until anaplasmosis ruled out. Cardiology consult. Trend troponins. Plan to continue Rocephin until her cardiac symptoms improve and then transition to oral doxycycline for total of 21 days of antibiotic. Continue with IV fluids for now. Patient does have erythema migrans at multiple location as below in examination. Admitting CTA chest, CXR, abdominal x-ray reviewed. Lyme titer positive at admission, follow-up with Anaplasma. Upon examination: GENERAL: Alert and oriented x3. NAD, on RA. HEENT: No pallor, no icterus. Pupils equal, round and reactive to light. Oral mucosa moist. NECK: No JVD, no neck masses. HEART: S1 and S2 heard. tachycardia. No murmur, no gallop. RESPIRATORY SYSTEM: Normal AP diameter. No accessory muscle use. No wheezing, no crackles. ABDOMEN: Soft, bowel sounds present, + tender epigastrium, no distention. CENTRAL NERVOUS SYSTEM: No facial droop. Speech is clear. Obeys simple commands. Moves extremities. EXTREMITIES: No edema, no erythema seen. Skin: back of left axilla and left rapp w/ faint rash (mobile picture reviewed from patient's mobile); Left lower belly and Rt medial thigh w/ EM noted. I have seen and examined the patient and have discussed the case with the provider above. I agree with the assessment and plan as stated.
[2021-12-24] MEDS ORDERED: cefTRIAXone SODIUM 2,000 MG/70 ML BAG IV STA (10:26)
--- NOTE | 2021-12-24 11:02 | Cardiology Consultation ---
Date of Consultation December 24, 2021 Assessment & Plan (1) Acute Lyme disease: (2) Tachycardia: (3) RADFORD (dyspnea on exertion): (4) Elevated troponin: Chest pain and dyspnea on exertion as well as tachycardia in the setting of acute Lyme infection. Discussed cardiac risk with acute Lyme infection- no bradycardia has been seen on monitor. HR averaging between 100-120s, ST. Continue to monitor on tele while inpatient. Will defer to primary team regarding treatment of Lyme- Patient to be started on Rocephin. Hypovolemia likely contributing to her tachycardia/hypotension- encourage adequate fluid intake/ IV fluids as ordered. Will check an echocardiogram to rule out any abnormalities in the heart function/structure, rule out dilated cardiomyopathy, will also assess for any effusions. EKG reviewed- did not show any evidence of diffuse ST elevation. HS troponin likely elevated in the setting of acute illness, doubt ACS. Again will check echo for reassurance. Case discussed with Dr. Devine- will follow. Supervising Physician Co-Signing Physician Notes Supervising Physician Attestation: I have personally performed a history and physical examination on the patient. I agree with the nurse practitioner's findings and plan as documented with the following additions. Subjective: Patient currently comfortable, seen in ED bed B2. At the time of my assessment, sinus tachycardia noted on telemetry in the range of 100-115 bpm. Currently afebrile. Present to the emergency room due to concerns of shortness of breath with minimal walking, fever, subjective palpitations with her smart watch alerting her of multiple episodes of resting heart rate greater than 120 bpm while resting overnight. Exam: General appearance: Alert and oriented x3 no acute distress Pulmonary: Clear to auscultation bilaterally Cardiovascular: Regular rhythm, tachycardic, no murmurs, no edema Skin: Erythematous rashes noted over the medial aspect of proximal left thigh, left lower abdomen, posterior aspect of left axilla Data: Lyme screen IgG and IgM positive, confirmatory test pending. Hemoglobin 10.2 Erythrocyte sedimentation rate 20 mm/hr CRP 10.71 High-sensitivity troponin mildly elevated, 23.9 PG per mL EKG performed today 12/24/2021 at 6:59 AM: Sinus tachycardia 107 bpm, T wave abnormality noted in the high lateral leads I and aVL. Echocardiogram performed today 12/24/2021 and reviewed independently: Normal biv entricular chamber size and systolic function, no regional wall motion abnormalities, LVEF 55%. No significant valvular pathology. No pericardial effusion Assessment and Plan: Recent febrile illness, rash, sinus tachycardia with subjective palpitations, dyspnea on exertion Lyme screen positive Mildly elevated HS troponin -Agree with empiric antibiotics, currently on both Rocephin and doxycycline. -Agree with IV fluids. -Trend troponins, measurements to be obtained at 1423 and 2022. -We will monitor her heart rate without pharmacotherapy for now. DVT prophylaxis: Patient is ambulatory. Az Devine DO History of Present Illness Reason for Consultation: Tachycardia, positive Lyme Requesting Physician: Breanna Silva PA-C History of Present Illness 36-year-old female presenting to the emergency department with concerns of palpitations, headache, lower extremity rash, and intermittent fever x3 weeks. Initially presented to [facility] emergency department over the weekend and followed up with her PCP who started her on doxycycline. Over the past few days patient has been waking up early in the morning with tachycardia. Per her apple watch heart rates have been in the 120s. She describes a fluttering sensation in her chest. If she gets up and walks even a short distance she will became dyspneic and feel chest tightness. If she stops and rests symptoms improve in a few minutes. Notes chest discomfort if she takes a deep breath in. No change in sensation with positioning. Not reproducible. Has been noticing dizziness/lightheadedness with position changes. No syncope. Has been trying to stay hydrated but this has been difficult for her due to a lack of appetite. Denies any known tick bites, [place] Rash comes and goes- patietn provided pictures on her phone. Notes a rash behind her left armpit area and BL legs. Right groin rash has been constant as well as an abdominal rash. Nonsmoker, no alcohol or drug use. Has 1 child of her own and one step child. Notes that her daughter had lyme this year. Denies any prior history of cardiac disease. No hx of rheumatic fever. No pertinent family cardiac history except grandfather had an MT in the remote past. Her PCP is Dr. Charito Augustin with [facility]. EKG 12/24: Sinus tachycardia 107 bpm. T wave abnormality in lateral leads. No prior recent EKG to compare. Labs: Anemia noted with hemoglobin of 10.2 (per the patient this is chronic), renal function and electrolytes stable, bilirubin mildly elevated at 1.1, AST normal at 28, ALT elevated at 84. Sensitivity troponin peaked at 24.5 now trending down at 23.9. CRP elevated at 10.71, Lyme IgM positive CTA of the chest without evidence of pulmonary emboli Past medical history: Hypothyroidism, on replacement History of costochondritis Anxiety ? Questionable history of Hep C dx during 2016, per chart review Anemia Allergies Allergy/AdvReac Type Severity Reaction Status Date / Time No Known Allergies Allergy Unverified 12/11/15 07:52 Home Medications Medication Instructions Recorded Confirmed Type doxycycline monohydrate 100 mg 100 mg PO BID 12/24/21 12/24/21 History tablet escitalopram oxalate 5 mg tablet 5 mg DAILY 12/24/21 12/24/21 History (Lexapro) levothyroxine 125 mcg tablet 125 mcg PO DAILY 12/24/21 12/24/21 History Patient History Medical History (Updated 12/24/21 @ 11:34 by SHELDON Dobbins) Anxiety Carpal tunnel syndrome, left Hypothyroidism Surgical History H/O tubal ligation History of back surgery Family History (Updated 12/24/21 @ 10:24 by Breanna Silva PA-C) Other Diabetes Social History Smoking Status: Never smoker Hx Alcohol Use: No Hx Substance Use: No Preferred Language: Tajik Feels Safe at Home: Yes Review of Systems Review of Systems: All systems reviewed & are unremarkable except as noted in HPI & below Physical Exam Constitutional: + ill appearing; no acute distress Eyes: PERRL, conjunctivae normal, anicteric sclerae Neck: normal visual inspection and trachea midline Respiratory: normal respiratory effort, lungs clear to auscultation Cardiovascular: Rate/Rhythm: regular rhythm and + tachycardic Heart Sounds: normal S1 and normal S2; no murmur Vessels: no JVD Extremities: no edema Musculoskeletal: no cyanosis or clubbing, extremities motor strength 5/5 Skin: + rash (Rash of left armpit, BLLE, right groin, lower abdomen- red, comes and goes.) Psychiatric: A+Ox3, euthymic affect Results & Data ([place]) Vital Signs (Past 12 Hours) Vital Signs Temp Pulse Resp BP Pulse Ox 12/24/21 10:00 102 H 28 H 96/68 L 95 12/24/21 08:00 108 H 26 H 110/68 97 12/24/21 07:00 105 H 22 110/69 99 12/24/21 06:05 109 H 27 H 103/70 95 12/24/21 05:28 115 H 21 106/68 96 12/24/21 05:11 37.0 C 126 H 18 113/67 96 Laboratory Results Cardiac Enzymes 12/24/21 12/24/21 12/24/21 Range/Units 05:49 08:23 08:23 AST TNP 28 Troponin I High Sens 24.5 H Cancelled 23.9 H (0-14) pg/ml CBC 12/24/21 Range/Units 05:49 WBC 10.39 (4.8-10.8) K/ul RBC 3.60 L (3.93-5.22) M/uL Hgb 10.2 L (12.0-16.0) g/dl Hct 30.1 L (34.1-44.9) % Plt Count 255 (130-400) K/uL Neut # (Auto) 9.17 H (1.4-6.5) K/uL Lymph # (Auto) 0.63 L (1.2-3.4) K/uL Pope # (Auto) 0.46 (0.24-0.82) K/uL Eos # (Auto) 0.07 (0-0.50) K/uL Baso # (Auto) 0.02 (0-0.2) K/uL Comprehensive Metabolic Panel 12/24/21 12/24/21 Range/Units 05:49 08:23 Sodium 137 (136-145) mmol/L Potassium TNP 3.8 Chloride 105 (98-107) mmol/L Carbon Dioxide 22 (21-32) mmol/L BUN 9 (6-23) mg/dl Creatinine 0.59 L (0.6-1.2) mg/dl Glucose 106 H (70-99(Fasting)) mg/dl Calcium 8.2 L (8.5-10.1) mg/dl AST TNP 28 ALT 84 H (7-52) U/L Alkaline Phosphatase 108 H (34-104) U/L Total Protein 6.5 (6.0-8.3) gm/dl Albumin 3.7 (3.4-5.0) gm/dl Intake and Output 12/23/21 12/24/21 12/24/21 22:59 06:59 14:59 Intake Total 1000 / 1000 Balance 1000 / 1000 Intake: IV 1000 / 1000 Sodium Chloride 0.9% 1000ML 1, 1000 / 1000 000 ml @ 999 mls/hr IV .Q1H1M ONE Rx#:[id number] Other: Weight 87 kg Weight Measurement Method Chair Scale
--- NOTE | 2021-12-24 11:22 | XRay Report ---
XR abdomen 2V w PA chest HISTORY: 36 years-old Female epigastric pain acute epigastric abdominal pain with nausea and vomitin g COMPARISON: Chest radiograph and CTA chest study is of same day TECHNIQUE: PA view of the chest with erect and supine views of the abdomen FINDINGS: Cardiomediastinal and hilar silhouettes are within normal limits. No pneumothorax, pleural effusion, airspace consolidation or overt pulmonary edema. Bones appear grossly intact. Left shoulder rotator c uff calcific tendinosis. There is no pneumatosis or pneumoperitoneum. Bowel gas pattern is nonobstructive. No urolith identif ied. No acute fracture. IMPRESSION: 1. No acute processes of the chest. 2. Nonobstructive bowel gas pattern. ACT 112: Negative or not required by law. The above report was generated using voice recognition software. It may contain grammatical, syntax o r spelling errors. Electronically signed by: Jignesh Davis M.D. 12/24/2021 11:21 AM
[2021-12-24] MEDS ORDERED: SODIUM CHLORIDE 0.9% 1000ML 1,000 ML IV SCH (11:30)
[2021-12-24] MEDS ORDERED: POLYETHYLENE (MIRALAX) 17 GM PACK PO PRN (13:18)
[2021-12-24] MEDS ORDERED: ACETAMINOPHEN 325 MG TAB PO PRN (13:18)
[2021-12-24] MEDS ORDERED: KETOROLAC TROMETHAMINE 15 MG/ML VIAL IV PRN (13:18)
[2021-12-24] MEDS ORDERED: ALBUT/IPRATROP 3MG/0.5MG NEB 3 ML VIAL NEB PRN (13:18)
[2021-12-24] MEDS ORDERED: ONDANSETRON INJ 2 MG/ML 2 ML VIAL IV PRN (13:18)
[2021-12-24] MEDS ORDERED: LEVALBUTEROL HCL 1.25 MG/3 ML NEB NEB PRN (14:37)
[2021-12-24] MEDS: DOXYCYCLINE HYCLATE 100 MG in DEXTROSE 5% 100 ML IV SCH (15:38)
--- NOTE | 2021-12-24 23:15 | Electrocardiogram Report ---
Test Reason : Blood Pressure : / mmHG Vent. Rate : 113 BPM Atrial Rate : 113 BPM P-R Int : 126 ms QRS Dur : 090 ms QT Int : 320 ms P-R-T Axes : 040 031 106 degrees QTc Int : 438 ms Poor data quality, interpretation may be adversely affected Sinus tachycardia Low voltage QRS Abnormal ECG When compared with ECG of 05-DEC-2015 12:25, Vent. rate has increased BY 48 BPM T wave inversion now evident in Lateral leads Confirmed by Han Neely ([id number]) on 12/24/2021 11:15:17 PM Referred By: REFERRED SELF Confirmed By:Han Neely
[2021-12-25] MEDS: DOXYCYCLINE HYCLATE 100 MG in DEXTROSE 5% 100 ML IV SCH ×2 (01:52→14:13)
[2021-12-25] MEDS: LEVOTHYROXINE SODIUM 125 MCG TABLET PO SCH (05:37)
--- NOTE | 2021-12-25 06:00 | Electrocardiogram Report ---
Test Reason : Blood Pressure : / mmHG Vent. Rate : 107 BPM Atrial Rate : 107 BPM P-R Int : 128 ms QRS Dur : 092 ms QT Int : 358 ms P-R-T Axes : 035 021 123 degrees QTc Int : 477 ms Sinus tachycardia Low voltage QRS T wave abnormality, consider lateral ischemia Abnormal ECG When compared with ECG of 24-DEC-2021 05:26, No significant change was found Confirmed by Han Neely ([id number]) on 12/25/2021 6:00:23 AM Referred By: REFERRED SELF Confirmed By:Han Neely
[2021-12-25 06:09] LABS: Hematocrit (blood only) 28.8 % (34.1-44.9); Hemoglobin 9.8 g/dl (12.0-16.0); Mean Corpuscular Hemoglobin 28.8 pg (25.0-34.0); Mean Corpuscular Volume 84.7 fL (80.0-100.0); Mean Platelet Volume 10.2 fL (9.4-12.3); Platelet Count 257 K/uL (130-400); RDW Standard Deviation 39.6 fL (36.4-46.3); White Blood Count 10.74 K/ul (4.8-10.8)
[2021-12-25 06:39] LABS: Albumin Globulin Ratio 1.3 (0.9-2); Albumin Level 3.6 gm/dl (3.4-5.0); Bilirubin,Total 0.4 mg/dl (0.2-1.0); Calcium 8.1 mg/dl (8.5-10.1); Creatinine Clr Calc Pharmacy 137.6 ml/min; Est GFR (African American) 133.7 ml/min; Est GFR (Non-African American) 115.4 ml/min; Globulin 2.7 gm/dl (2.5-4.0); Total Protein 6.3 gm/dl (6.0-8.3)
--- NOTE | 2021-12-25 07:28 | Cardiology Progress Note ---
Date of Service December 25, 2021 Assessment & Plan (1) Acute Lyme disease: (2) Tachycardia: (3) RADFORD (dyspnea on exertion): (4) Elevated troponin: Plan: Chest pain and dyspnea on exertion as well as tachycardia in the setting of acute febrile illness. Tachycardia has been noted on telemetry without any bradyarrhythmias/pauses. Improving. HS troponin peaked at 24.5 and trended downward. HS troponin likely elevated in the setting of acute febrile illness, doubt ACS. Echo without structural abnormalities, no cardiomyopathy, no effusions- this is reassuring. EKG without acute changes suggestive of Lyme carditis Heart rates over night 70-80s, x1 episode of asymptomatic SVT on tele this am. Asymptomatic. -Continue to monitor on tele while inpatient. Given improvement in heart rates will avoid AV madiha blocking agents at this time. -Will defer to primary team regarding treatment of Lyme- on both Rocephin and Doxy -Encourage adequate hydration, monitor electrolytes and replete as necessary. Case discussed with Dr. Devine- will follow. Admission and Anticipated Discharge Date Admission Date: December 24, 2021 Supervising Physician Co-Signing Physician Notes Supervising Physician Attestation: I have personally performed a history and physical examination on the patient. I agree with the nurse practitioner's findings and plan as documented with the following additions. Subjective: Overall patient feels improved. She continues to have erythematous rashes, now an oval rash has occurred on the lateral aspect of the proximal right thigh. Afebrile overnight and again this morning. Telemetry reveals brief episode of recurrent SVT 7:50 AM, 12/25/2021, 8 beats in duration at 200 bpm. Otherwise sinus rhythm in the 80s noted, with average heart rate much improved compared to presentation to the emergency room yesterday when she was averaging heart rates of 100 to 120 bpm. Exam: Skin: Multiple erythematous oval rashes as noted above, left lower leg, right proximal thigh, back, abdomen Cardiovascular: Regular rhythm no murmurs Data: EKG performed today 12/25/2021, normal sinus rhythm, 92 bpm. Normal EKG. Echocardiogram performed 12/24/2020 reviewed independently: Normal left ventricular myocardial thickness and normal LV wall motion, LVEF 55%, the right ventricular chamber size and systolic function is normal. No significant valvular pathology. Doppler findings do not suggest pulmonary hypertension. There is no pericardial effusion. Lyme screen: IgG positive, IgM positive, Western blot pending. HS Troponin I : 24.5--> 23.9--> 18.3--> 15.7. Assessment and Plan: Febrile illness, suspect acute Lyme disease -Echocardiogram results and relatively low troponin levels reassuring, doubtful patient has Lyme carditis. -Agree with ongoing IV antibiotics including Rocephin. -Patient with difficult IV access, IV team is looking to establish another line. -Brief episode of SVT, anticipate heart rates will continue to improve as she improves from an infectious standpoint. Continue to observe without beta- kristin therapy. Dr Tafoya rounding on 12/26/2021, please call with questions or concerns. DVT prophylaxis: Encourage ambulation Az Devine, DO Subjective 36-year-old female with recent febrile illness, rash, sinus tachycardia with palpitations, and dyspnea on exertion. Lyme IgG and IgM postive. High- sensitivity troponin mildly elevated: 24.5>>23.9>>18.3>>15.7 Started on empiric antibiotics, currently on both IV Rocephin and doxycycline. Echocardiogram revealed a normal LVEF of 55% without wall motion abnormalities. No diastolic dysfunction. No significant valvular pathology. Repeat EKG this morning without significant change, sinus rhythm, no ST elevation noted. Heart rate in the 90s. Tele: SR 70-80s, x1 short run of SVT- asymptomatic Upon entrance into the room patient was sitting up in bed without acute concerns eating breakfast. She notices a significant improvement in her energy level and stamina from yesterday to today. No further episodes of chest pressure. Shortness of breath remains, but improving. Has been trying to get up and ambulate in the thomas way once or twice an hour. Tachycardia improving- no palpitations. No further episodes of fever or chills. No dizziness or presyncope. Review of Systems Review of Systems: All systems reviewed & are unremarkable except as noted in HPI & below Physical Exam Constitutional: WD/WN, vitals as above no acute distress Eyes: PERRL, conjunctivae normal, anicteric sclerae Neck: normal visual inspection Respiratory: normal respiratory effort, lungs clear to auscultation Cardiovascular: Rate/Rhythm: regular rhythm and + tachycardic Heart Sounds: normal S1 and normal S2; no murmur Vessels: no JVD Extremities: no edema Musculoskeletal: no cyanosis or clubbing, extremities motor strength 5/5 Skin: + rash (Rash of left armpit, BLLE, right groin, lower abdomen- red, comes and goes.) Psychiatric: A+Ox3, euthymic affect Results & Data ([facility]) Vital Signs (Past 12 Hours) Vital Signs Temp Pulse Pulse Resp BP Pulse Ox 12/25/21 07:12 83 12/25/21 04:00 37.0 C 94 H 18 104/67 96 12/24/21 23:00 37.0 C 104 H 18 118/72 96 12/24/21 20:42 105 H 18 97 Laboratory Results Cardiac Enzymes 12/24/21 12/24/21 12/24/21 Range/Units 08:23 08:23 14:56 AST 28 (13-39) U/L Troponin I High Sens Cancelled 23.9 H 18.3 H D 12/24/21 12/25/21 Range/Units 19:46 05:41 AST 18 (13-39) U/L Troponin I High Sens 15.7 H CBC 12/25/21 Range/Units 05:41 WBC 10.74 (4.8-10.8) K/ul RBC 3.40 L (3.93-5.22) M/uL Hgb 9.8 L (12.0-16.0) g/dl Hct 28.8 L (34.1-44.9) % Plt Count 257 (130-400) K/uL Comprehensive Metabolic Panel 12/24/21 12/25/21 Range/Units 08:23 05:41 Sodium 137 (136-145) mmol/L Potassium 3.8 4.0 (3.5-5.1) mmol/L Chloride 107 (98-107) mmol/L Carbon Dioxide 23 (21-32) mmol/L BUN 12 (6-23) mg/dl Creatinine 0.63 (0.6-1.2) mg/dl Glucose 139 H (70-99(Fasting)) mg/dl Calcium 8.1 L (8.5-10.1) mg/dl AST 28 18 (13-39) U/L ALT 60 H (7-52) U/L Alkaline Phosphatase 96 (34-104) U/L Total Protein 6.3 (6.0-8.3) gm/dl Albumin 3.6 (3.4-5.0) gm/dl Intake and Output 12/24/21 12/25/21 12/25/21 22:59 06:59 14:59 Intake Total 1590 / 2990 330 / 2990 Balance 1590 / 2990 330 / 2990 Intake: IV 1110 / 2290 110 / 2290 Doxycycline Hyclate 100 mg In 110 / 220 110 / 220 Dextrose 5% 100 ml @ 50 mls/hr IV Q12H RITO Rx#:[id number] Sodium Chloride 0.9% 1000ML 1, 1000 / 1000 000 ml @ 125 mls/hr IV .Q8H RITO Rx#:[id number] Oral 480 / 700 220 / 700 Other: # Unmeasured Voids 2 1 Weight 87.6 kg 87.6 kg Weight Measurement Method Standing Scale Standing Scale
[2021-12-25] MEDS: ESCITALOPRAM OXALATE 10 MG TAB PO SCH (08:34)
[2021-12-25] MEDS ORDERED: LORazepam 0.5 MG in SYRINGE 0.25 ML IV STA (10:29)
[2021-12-25] MEDS ORDERED: LORazepam 1 MG TAB PO PRN (11:28)
--- NOTE | 2021-12-25 11:28 | Hospitalist Progress Note ---
Date of Service December 25, 2021 Assessment & Plan (1) Acute Lyme disease: (2) Elevated troponin: (3) Anxiety: Plan: 36yo F with a PMH of hypothyroidism and anxiety who presents with palpitations, headache and rash x 3 weeks found to have acute lyme disease. Acute lyme disease Elevated troponin Sinus tachycardia Rash, headache, fevers x 3 weeks followed by sinus tach up to 120s, exertional dyspnea over past few days Has been on oral doxycycline x 3 days WBC and lactate WNL. Hgb 10, ESR 20, CRP 10.71 Biofire positive for lyme disease IgM and IgG. Babesia smear negative, DNA pending EKG showed sinus tachycardia Echo is unremarkable. Trop HS was mildly elevated on admission at 24.5 and trended down. May be demand ischemia in setting of acute illness Cardiology recs noted Continue IV ceftriaxone Continue po doxycycline to cover other tick borne illness Epigastric pain In setting of acute lyme disease No tenderness on exam today Mild elevation of LFTs on admission- tbili 1.1, ALT 84, alk phos 108 Lipase WNL LFT improved. Tbili is 0.4, ALT 60, Alk phos 96 today Anxiety Continue Lexapro HS Hypothyroidism Continue levothyroxine DVT Ppx: SCDs, early ambulation Code status: FULL PCP: Charli Dunn) Admission and Anticipated Discharge Date Admission Date: December 24, 2021 Subjective 36-year-old woman with history of hypothyroidism and anxiety who presented with palpitations, rash, fever and headache Patient seen and examined. Reports feeling better this morning. Reports palpitation is resolved. Also reports shortness of breath with activity is improving Denied any fevers, chills Denies nausea, vomiting, diarrhea constipation. Reports some mild epigastric discomfort. Denies cough, chest pain Denies dysuria, frequency, urgency, hematuria Review of Systems Review of Systems: All systems reviewed & are unremarkable except as noted in Subjective Physical Exam Constitutional: + well hydrated; no acute distress Eyes: PERRL, conjunctivae normal, anicteric sclerae ENMT: external ear and nose normal, oropharynx normal Respiratory: normal respiratory effort, lungs clear to auscultation Cardiovascular: Rate/Rhythm: regular rate and regular rhythm S1 S2 Gastrointestinal (Abdomen): normal bowel sounds, soft, nontender, no hepatosplenomegaly Musculoskeletal: no cyanosis or clubbing, extremities motor strength 5/5 Skin: Multiple erythematous rash and legs, back in different stages of healing Neurologic: PERRL, EOMI, accommodation nl, no face palsy, no dysarthria Psychiatric: A+Ox3, euthymic affect Results & Data Results & Data ([facility]) Vital Signs (Past 12 Hours) Vital Signs Temp Pulse Pulse Resp BP Pulse Ox 12/25/21 11:01 36.8 C 85 18 131/83 97 12/25/21 07:30 36.9 C 93 H 18 112/71 100 12/25/21 07:12 83 12/25/21 04:00 37.0 C 94 H 18 104/67 96 Laboratory Results Abnormal lab results 12/24/21 12/24/21 12/25/21 Range/Units 14:56 19:46 05:41 RBC 3.40 L (3.93-5.22) M/uL Hgb 9.8 L (12.0-16.0) g/dl Hct 28.8 L (34.1-44.9) % Glucose (70-99(Fasting)) mg/dl Calcium (8.5-10.1) mg/dl ALT (7-52) U/L Troponin I High Sens 18.3 H D 15.7 H (0-14) pg/ml 12/25/21 Range/Units 05:41 RBC (3.93-5.22) M/uL Hgb (12.0-16.0) g/dl Hct (34.1-44.9) % Glucose 139 H (70-99(Fasting)) mg/dl Calcium 8.1 L (8.5-10.1) mg/dl ALT 60 H (7-52) U/L Troponin I High Sens (0-14) pg/ml
[2021-12-25] MEDS: cefTRIAXone SODIUM 2,000 MG in DEXTROSE 5% 50 ML IV SCH (13:38)
--- NOTE | 2021-12-25 23:03 | Electrocardiogram Report ---
Test Reason : Blood Pressure : / mmHG Vent. Rate : 092 BPM Atrial Rate : 092 BPM P-R Int : 146 ms QRS Dur : 092 ms QT Int : 388 ms P-R-T Axes : 054 045 082 degrees QTc Int : 479 ms Normal sinus rhythm Low voltage QRS Borderline ECG When compared with ECG of 24-DEC-2021 06:59, T wave inversion no longer evident in Lateral leads Confirmed by Han Neely ([id number]) on 12/25/2021 11:03:09 PM Referred By: REFERRED SELF Confirmed By:Han Neely
[2021-12-26] MEDS: DOXYCYCLINE HYCLATE 100 MG in DEXTROSE 5% 100 ML IV SCH ×2 (02:01→12:02)
[2021-12-26 02:58] LABS: A calco-baum cmplx NotReported Not Detected (NotDetected); Bact fragilis Not Reported Not Detected (NotDetected); C auris Not Reported Not Detected (NotDetected); Calbicans Not Reported Not Detected (NotDetected); Candida glabrata Not Reported Not Detected (NotDetected); Candida krusei Not Reported Not Detected (NotDetected); Cneoformans/gatti Not Reported Not Detected (NotDetected); Cparapsilosis Not Reported Not Detected (NotDetected); Ctropicalis Not Reported Not Detected (NotDetected); E cloacae compx Not Reported Not Detected (NotDetected); Efaecalis Not Reported Not Detected (NotDetected); Efaecium Not Reported Not Detected (NotDetected); Enterobacterales Not Reported Not Detected (NotDetected); Escherichia coli Not Reported Not Detected (NotDetected); H influenzae Not Reported Not Detected (NotDetected); K aerogenes Not Reported Not Detected (NotDetected); Koxytoca Not Reported Not Detected (NotDetected); Kpneumoniae grp Not Reported Not Detected (NotDetected); Lmonocyt Not Reported Not Detected (NotDetected); N meningitidis Not Reported Not Detected (NotDetected); P aeruginosa Not Reported Not Detected (NotDetected); Proteus spp Not Reported Not Detected (NotDetected); Salmonella spp Not Reported Not Detected (NotDetected); Smarcescens Not Reported Not Detected (NotDetected); Staph lugdunensis Not Reported Not Detected (NotDetected); Staph spp. Not Reported Not Detected (NotDetected); Staphaureus Not Reported Not Detected (NotDetected); Staphepi Not Reported Not Detected (NotDetected); Stenmaltophilia Not Reported Not Detected (NotDetected); Strep agal(GrpB) Not Reported Not Detected (NotDetected); Strep pneum Not Reported Not Detected (NotDetected); Strep pyog (GrpA) Not Reported Not Detected (NotDetected); Strep spp Not Reported Not Detected (NotDetected)
[2021-12-26] MEDS: LEVOTHYROXINE SODIUM 125 MCG TABLET PO SCH (06:10)
[2021-12-26 07:17] LABS: Hematocrit (blood only) 31.9 % (34.1-44.9); Hemoglobin 10.6 g/dl (12.0-16.0); Mean Corpuscular Hemoglobin 28.6 pg (25.0-34.0); Mean Corpuscular Hgb Conc 33.2 g/dL (32.0-36.0); Mean Corpuscular Volume 86.2 fL (80.0-100.0); Mean Platelet Volume 9.8 fL (9.4-12.3); Platelet Count 267 K/uL (130-400); RDW Standard Deviation 40.5 fL (36.4-46.3); White Blood Count 7.88 K/ul (4.8-10.8)
[2021-12-26 07:40] LABS: Albumin Globulin Ratio 1.3 (0.9-2); Albumin Level 3.6 gm/dl (3.4-5.0); Bilirubin,Total 0.4 mg/dl (0.2-1.0); Calcium 8.1 mg/dl (8.5-10.1); Creatinine Clr Calc Pharmacy 114.3 ml/min; Est GFR (Non-African American) 100.9 ml/min; Globulin 2.7 gm/dl (2.5-4.0); Potassium 3.7 mmol/L (3.5-5.1); Total Protein 6.3 gm/dl (6.0-8.3)
[2021-12-26] MEDS ORDERED: Nursing to Pharmacy Communication SCH (09:30)
[2021-12-26] MEDS: ESCITALOPRAM OXALATE 10 MG TAB PO SCH (10:57)
[2021-12-26] MEDS: cefTRIAXone SODIUM 2,000 MG in DEXTROSE 5% 50 ML IV SCH (11:30)
--- NOTE | 2021-12-26 13:40 | Discharge Summary ---
Date of Service December 26, 2021 Admission HPI Per Admitting Provider This is a 36yo F with a PMH of hypothyroidism and anxiety who presents with palpitations, headache and rash x 3 weeks. Patient began to feel much more fatigued than usual 3 weeks ago when she noted a rash on left lower extremity. Then developed intermittent headache and fever (tmax 101) over next few weeks. Was in [place] ER over the weekend and followed up with PCP on Tuesday and started on doxycycline for rash. Outpatient lab work revealed mild anemia and elevated liver enzymes as well negative Mononucleosis test. 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 Also noted new rash behind left armpit. Feeling dyspneic with exertion. Continues to have intermittent fevers, most recently 101 yesterday with chills. Taking tylenol and advil at home with symptomatic improvement. Also endorsing epigastric pain over past few days as well as decreased appetite. No nasal congestion, sore throat, chest pain, wheezing, nausea, vomiting, diarrhea or constipation. Denies any known tick bites. No paresthesias or weakness of extremities. No difficulty with memory. Admission Exam Per Admitting Provider General Appearance:WD/WN, vitals as above, NAD, sitting up in bed, pleasant, conversing easily Head: normocephalic, atraumatic Eyes:normal inspection, PERRL, conjunctivae normal, anicteric sclerae ENT: external ear and nose normal, oropharynx normal Neck: normal visual inspection, trachea midline, no thyromegaly Respiratory:normal respiratory effort, lungs clear to auscultation, no wheeze, rales, rhonchi. No accessory muscle use Cardiovascular: tachycardic rate, regular rhythm, no murmur, normal peripheral pulses, no BLE edema. Vessels: no JVD Chest: normal inspection of chest Abdomen/GI: normal bowel sounds, soft, epigastric TTP, no guarding, no hepatosplenomegaly Extremities/Musculoskeletal: no cyanosis or clubbing, extremities motor strength 5/5 Neurologic: PERRL, EOMI, accommodation nl, no face palsy, no dysarthria, CN's II-XI intact bilaterally and moves all extremities Psychiatric:A+Ox3, euthymic affect Skin: + large erythematous rash on LLE with central clearing. Smaller circumscribed erythematous rash on posterior axillary region of L arm with central clearing. Non-tender, no drainage. Warm/dry Principal Diagnosis Acute lyme disease Elevated troponin Sinus tachycardia Discharge Exam Constitutional + well hydrated; no acute distress Eyes PERRL, conjunctivae normal, anicteric sclerae ENMT external ear and nose normal, oropharynx normal Respiratory normal respiratory effort, lungs clear to auscultation Cardiovascular Rate/Rhythm: regular rate and regular rhythm S1 S2 Gastrointestinal (Abdomen) normal bowel sounds, soft, nontender, no hepatosplenomegaly Musculoskeletal no cyanosis or clubbing, extremities motor strength 5/5 Skin Erythematous rash almost completely resolved Neurologic PERRL, EOMI, accommodation nl, no face palsy, no dysarthria Psychiatric A+Ox3, euthymic affect Discharge Data Allergies Allergy/AdvReac Type Severity Reaction Status Date / Time No Known Allergies Allergy Unverified 12/11/15 07:52 Consultations 12/24/21 07:24 ED Decision to Admit Stat 12/24/21 10:30 Consult Cardiology Routine Ordered Studies 12/24/21 05:15 CT angio chest PE protocol Stat CTA: There is adequate opacification of the pulmonary arteries to the level of the segmental branches without convincing evidence of acute pulmonary embolism. Normal thoracic aorta.Heart size is normal. CT CHEST: No dominant thyroid nodule is seen. Nonspecific mildly enlarged right hilar lymph node, 1.2 cm. There is no pneumothorax, pleural effusion or focal airspace consolidation. There is mild dependent subsegmental bibasilar atelectasis. There are no suspicious pulmonary nodules or masses. The central airways are patent. The imaged upper abdominal structures are unremarkable. Probable hepatic steatosis. The spleen measures within the upper limits of normal in size. Unremarkable soft tissues. No acute fracture. IMPRESSION: Unremarkable CTA of the chest. No pulmonary emboli identified. Hospital Course (1) Acute Lyme disease: (2) Elevated troponin: (3) Anxiety: 36yo F with a PMH of hypothyroidism and anxiety who presents with palpitations, headache and rash x 3 weeks found to have acute lyme disease. Acute lyme disease Elevated troponin Sinus tachycardia Rash, headache, fevers x 3 weeks followed by sinus tach up to 120s, exertional dyspnea over past few days WBC and lactate WNL. Hgb 10, ESR 20, CRP 10.71 Biofire positive for lyme disease IgM and IgG. Babesia smear negative, DNA pending EKG showed sinus tachycardia Echo is unremarkable. Trop HS was mildly elevated on admission at 24.5 and trended down. May be demand ischemia in setting of acute illness Was started on IV ceftriaxone in addition to doxycycline po inpatient Symptoms completely resolved Patient reported she still had 6 days worth of doxycycline that was prescribed prior to presentation. Additional doses prescribed to complete 2 weeks of treatment Epigastric pain In setting of acute lyme disease No tenderness on exam today Mild elevation of LFTs on admission- tbili 1.1, ALT 84, alk phos 108 Lipase WNL LFT improved. Tbili is 0.4, ALT 60, Alk phos 96 Epigastric pain resolved Anxiety Continue Lexapro HS Hypothyroidism Continue levothyroxine Total Time Total Time Spent Total Time Spent (In Minutes): 45 Total Time Includes: Examination of the Patient, Discharge Planning and Medication Reconciliation Discharge Plan Discharge Items Patient Disposition: Home - Self-Care Reason For Visit: FEVER, RASH, TACHYCARDIA Discharge Diagnosis: Acute lyme infection Condition on Discharge: Good Activity: Resume your previous activity Non-emergency contact: Primary Care Provider Call non-emergency contact if: you have any medication questions and your symptoms worsen Follow-up/Referrals: Charito Augustin MD [Primary Care Provider] - Diet: Regular Addtl Attending Provider Instructions: Mrs Burden. You came to the hospital complaining of palpitation, shortness of breath, rash. You were evaluated and found to have acute Lyme infection. You were started on treatment. Your symptoms resolved. You reported you have 6 day remaining supply of doxycycline at home. You are being discharged on doxycycline. Please continue to complete total of 2 weeks of treatment including days in the hospital. Please ensure follow up with your Primary Doctor. It was a pleasure taking care of you. Pending Studies at Discharge: Yes Stand-Alone Forms: My [facility] [place], Smoking Cessation Medications and DC Order Prescriptions: Continued levothyroxine 125 mcg tablet 125 mcg PO DAILY RF: 0 escitalopram oxalate [Lexapro] 5 mg Tablet 5 mg DAILY RF: 0 doxycycline monohydrate 100 mg tablet 100 mg PO BID Qty: 8 RF: 0 Discharge Orders: Discharge Order (Routine); Ordered 12/26/21 Ordered By: Snow Boyle/Other Patient Handouts: Preventing Lyme Disease Admission Data Admit Date/Time: 12/24/21 09:42 Attending Provider: Snow Pulido I. Admit Provider: Richard Mohr Primary Care Provider: Charito Augustin Other Providers: Az Devine ; Gus Polk ; Richard Mohr Other Interventions: Discharge Summary Assessment (RN) Last Done: 12/26/21 14:00
[2021-12-26] MEDS ORDERED: ESCITALOPRAM OXALATE 10 MG TAB PO SCH (21:00)
[2021-12-27 13:32] LABS: Babesia microti DNA Not Detected (Not Detected)
[2021-12-28 13:11] LABS: 18KDIGG Band NON-REACTIVE; 23KDIGG Band NON-REACTIVE; 23KDIGM Band REACTIVE; 28KDIGG Band NON-REACTIVE; 30KDIGG Band NON-REACTIVE; 39KDIGG Band NON-REACTIVE; 39KDIGM Band REACTIVE; 41KDIGG Band REACTIVE; 41KDIGM Band REACTIVE; 45KDIGG Band NON-REACTIVE; 58KDIGG Band NON-REACTIVE; 66KDIGG Band NON-REACTIVE; 93KDIGG Band NON-REACTIVE; Lyme Antibodies, WB IgG NEGATIVE (NEGATIVE); Lyme Antibodies, WB IgM POSITIVE (NEGATIVE)
== END 2021-12-26 14:13 | disposition home or self-care (01) | DRG 868 ==
LOC: ED 05:06 → SUATTDRO 09:42 → EDINP 09:42 → 2N 13:30